=== PATIENT | female | born 1990 | race African-American/Black ===

== ENCOUNTER 2016-07-14 23:59 | Emergency (ER) | payer BC ==
[~2016-07-14] VITALS: Ht 172.7 cm; Wt 60.0 kg
[~2016-07-14 23:59] MED LIST: AUGM250S2 PO; LOMO PO; PRED5TAB; TACT325T; ZOFR4TAB3 SL
[2016-07-15 00:04] VITALS: BP 119/62; PULSE 62; RESP 16; TEMP 98; O2SAT 100
[2016-07-15 00:27] LABS: AUTOMATED NEUTROPHIL # 2.1 TH/MM3 (1.8-7.7); BASOPHIL % 0.9 % (0.0-2.0); EOSINOPHIL # 0.1 TH/MM3 (0-0.4); EOSINOPHIL % 1.1 % (0.0-4.0); HEMATOCRIT 36.7 % (35.0-46.0); HEMO FLAGS DIFF FINAL; LYMPH % 47.7 % (9.0-44.0); LYMPHOCYTE # 2.3 TH/MM3 (1.0-4.8); MEAN CELL VOLUME 84.5 FL (80.0-100.0); MEAN CORPUSCULAR HEMOGLOBIN 29.7 PG (27.0-34.0); MEAN CORPUSCULAR HGB CONC 35.1 % (32.0-36.0); MONO % 5.9 % (0.0-8.0); NEUT % 44.4 % (16.0-70.0); PLATELET COUNT 253 TH/MM3 (150-450); RED BLOOD COUNT 4.35 MIL/MM3 (4.00-5.30); RED CELL DISTRIBUTION WIDTH 13.7 % (11.6-17.2); WHITE BLOOD COUNT 4.8 TH/MM3 (4.0-11.0)
[2016-07-15 00:46] LABS: ALT (GPT) 13 U/L (10-53); ANION GAP 8 MEQ/L (5-15); AST (GOT) 10 U/L (15-37); BICARBONATE 26.7 MEQ/L (21.0-32.0); BLOOD UREA NITROGEN 6 MG/DL (7-18); CHLORIDE 110 MEQ/L (98-107); GLOMERULAR FILTRATION RATE 99 ML/MIN (>89); POTASSIUM 3.6 MEQ/L (3.5-5.1); SODIUM (NA) 145 MEQ/L (136-145)
--- NOTE | 2016-07-15 00:47 | RADRPT ---
EXAM DATE/TIME: 07/15/2016 00:32 [place] COMPARISON: No previous studies available for comparison. INDICATIONS : Right chest pain. MEDICAL HISTORY : None. SURGICAL HISTORY : None. ENCOUNTER: Initial ACUITY: 1 day PAIN SCORE: 10/10 LOCATION: Right chest FINDINGS: A single view of the chest demonstrates the lungs to be symmetrically aerated without evidence of mas s, infiltrate or effusion. The cardiomediastinal contours are unremarkable. Osseous structures are intact. CONCLUSION: No acute cardiopulmonary process. Brian Vora MD on July 15, 2016 at 0:45 Board Certified Radiologist. This report was verified electronically.
[2016-07-15 00:50] LABS: ALKALINE PHOSPHATASE 86 U/L (45-117); TOTAL BILIRUBIN ADULT 0.2 MG/DL (0.2-1.0)
[2016-07-15 01:02] LABS: CREATINE KINASE 69 U/L (26-192)
[2016-07-15 01:25] LABS: BACTERIA, URINE MOD /hpf; BLOOD, URINE NEG (NEG); GLUCOSE,URINE NEG (NEG); HYALINE CAST, URINE 1 /lpf (RARE); KETONE, URINE NEG (NEG); MUCUS URINE FEW /lpf (OCC); NITRITE,URINE NEG (NEG); SQUAMOUS EPITHELIAL CELL URINE 4 /hpf (0-5); URINE COLOR YELLOW (YELLW/STRAW)
[2016-07-15 01:28] LABS: COMMENT (UR) CATH-CULTURE IND; CULTURE IF INDICATED CATH CULTURE IND
[2016-07-15] MEDS ORDERED: MACR100C2 PO (01:41)
[2016-07-15] MEDS ORDERED: MOBI15TA PO (01:41)
--- NOTE | 2016-07-15 01:47 | PD ---
HPI Chief Complaint: Chest Pain Time Seen by Provider: 01:42 Travel History International Travel<30 days: No Contact w/Intl Traveler<30days: No Traveled to known affect area: No History of Present Illness HPI 26-year-old black female presents to emergency Department with complaints of left-sided chest wall pain. She states that she's been having pains on and off now for nearly 2 years. She states that sometimes the pains come and go. She associates laying on her left and right side as an exacerbating factor. She states the pains are sharp and stabbing. Moderate in intensity. They resolve within seconds to minutes. She does state that certain activities bring the pain on his well. She denies any recent illness. No fever or chills. No chest congestion, cough. No shortness of breath or wheezing. No calf pain or swelling. She denies any connective tissue disorders or clotting problems. She does smoke. She denies control. No family history of clotting disorders according to the patient. PFSH Past Medical History Medical History: Denies Significant Hx Immunizations Current: Yes ?: Not LMP: 3-5-17 : 2 : 2 Past Surgical History Surgical History: No Previous Surgery Social History Alcohol Use: No Tobacco Use: Yes (5-6 CIG. A DAY) Substance Use: Yes (OCCAS. MARJUANA) Allergies-Medications (Allergen,Severity, Reaction): Coded Allergies: No Known Allergies (Unverified , 06/22/15) Reported Meds & Prescriptions Reported Meds & Active Scripts Active Lomotil (Diphenoxylate HCl/Atropine) 1 Tab Tab 1 Tab PO Q6H PRN Zofran ODT (Ondansetron HCl) 4 Mg Tab 4 Mg SL Q6H PRN FOR NAUSEA/VOMITING Reported Tactinal 325 mg (Acetaminophen) 325 Mg Tab Augmentin 250 Mg/5 Ml Susp (Amoxicillin/Clavulanate Potassium) 250 Mg/5 Ml Susp 250 Mg PO BID Prednisone 5 Mg Tab Review of Systems Except as stated in HPI: all other systems reviewed are Neg Physical Exam Narrative GENERAL: Well-developed, well-nourished in no apparent distress. Nontoxic appearing. HEAD: Normocephalic, atraumatic. EYES: Pupils equal round and reactive. Extraocular motions intact. No scleral icterus. No injection or drainage. ENT: Nose clear. Throat without erythema, tonsillar hypertrophy or exudate. Uvula midline. Airway patent. NECK: Trachea midline. Supple, nontender, moves head freely. No central bony tenderness or spasm. CARDIOVASCULAR: Regular rate and rhythm without murmurs, gallops, or rubs. CHEST: Mild discomfort to palpation of left chest wall without deformity or crepitance. No retractions or use of accessory muscles. RESPIRATORY: Clear to auscultation. Breath sounds equal bilaterally. No wheezes , rales, or rhonchi. GASTROINTESTINAL: Abdomen soft, non-tender, nondistended. No hepato-splenomegaly , or palpable masses. No guarding. EXTREMITIES: No clubbing, cyanosis, or edema. No joint tenderness. Supple. No Homans sign. BACK: Nontender without deformity. No flank tenderness. NEUROLOGICAL: Awake, alert and oriented x 3 .Cranial nerves grossly intact. Motor and sensory grossly within normal limits. Normal speech. Data Data Last Documented VS Vital Signs Date Time Temp Pulse Resp B/P Pulse Ox O2 Delivery O2 Flow Rate FiO2 07/15/16 00:04 98.0 62 16 119/62 100 Orders Electrocardiogram (07/15/16:15) Complete Blood Count With Diff (07/15/16:) Ckmb (Isoenzyme) Profile (07/15/16:) Troponin I (07/15/16:) Chest, Single Ap (07/15/16:15) Iv Access Insert/Monitor (07/15/16:15) Ecg Monitoring (07/15/16:) Oxygen Administration (07/15/16:) Oximetry (07/15/16:) Urinalysis - C+S If Indicated (07/15/16:15) Comprehensive Metabolic Panel (07/15/16:) Urine Culture (07/15/16:) Labs Laboratory Tests Test 07/15/16 07/15/16 00:10 00:15 White Blood Count 4.8 TH/MM3 Red Blood Count 4.35 MIL/MM3 Hemoglobin 12.9 GM/DL Hematocrit 36.7 % Mean Corpuscular Volume 84.5 FL Mean Corpuscular Hemoglobin 29.7 PG Mean Corpuscular Hemoglobin 35.1 % Concent Red Cell Distribution Width 13.7 % Platelet Count 253 TH/MM3 Mean Platelet Volume 8.8 FL Neutrophils (%) (Auto) 44.4 % Lymphocytes (%) (Auto) 47.7 % Monocytes (%) (Auto) 5.9 % Eosinophils (%) (Auto) 1.1 % Basophils (%) (Auto) 0.9 % Neutrophils # (Auto) 2.1 TH/MM3 Lymphocytes # (Auto) 2.3 TH/MM3 Monocytes # (Auto) 0.3 TH/MM3 Eosinophils # (Auto) 0.1 TH/MM3 Basophils # (Auto) 0.0 TH/MM3 CBC Comment DIFF FINAL Differential Comment Sodium Level 145 MEQ/L Potassium Level 3.6 MEQ/L Chloride Level 110 MEQ/L Carbon Dioxide Level 26.7 MEQ/L Anion Gap 8 MEQ/L Blood Urea Nitrogen 6 MG/DL Creatinine 0.85 MG/DL Estimat Glomerular Filtration 99 ML/MIN Rate Random Glucose 81 MG/DL Calcium Level 8.5 MG/DL Total Bilirubin 0.2 MG/DL Aspartate Amino Transf 10 U/L (AST/SGOT) Alanine Aminotransferase 13 U/L (ALT/SGPT) Alkaline Phosphatase 86 U/L Total Creatine Kinase 69 U/L Troponin I LESS THAN 0.02 NG/ML Total Protein 7.0 GM/DL Albumin 3.6 GM/DL Urine Color YELLOW Urine Turbidity HAZY Urine pH 6.0 Urine Specific [place] 1.016 Urine Protein NEG mg/dL Urine Glucose (UA) NEG mg/dL Urine Ketones NEG mg/dL Urine Occult Blood NEG Urine Nitrite NEG Urine Bilirubin NEG Urine Urobilinogen LESS THAN 2.0 MG/DL Urine Leukocyte Esterase MOD Urine RBC 2 /hpf Urine WBC 12 /hpf Urine Squamous Epithelial 4 /hpf Cells Urine Amorphous Sediment RARE Urine Bacteria MOD /hpf Urine Hyaline Casts 1 /lpf Urine Mucus FEW /lpf Urine Trichomonas RARE Microscopic Urinalysis Comment CATH-CULTURE IND MDM Medical Decision Making Medical Screen Exam Complete: Yes Emergency Medical Condition: Yes Medical Record Reviewed: Yes Interpretation(s) EKG shows normal sinus bradycardia, no ST elevation or depression, and no arrhythmias. No significant T-wave inversions. Laboratory Tests Test 07/15/16 07/15/16 00:10 00:15 White Blood Count 4.8 TH/MM3 Red Blood Count 4.35 MIL/MM3 Hemoglobin 12.9 GM/DL Hematocrit 36.7 % Mean Corpuscular Volume 84.5 FL Mean Corpuscular Hemoglobin 29.7 PG Mean Corpuscular Hemoglobin 35.1 % Concent Red Cell Distribution Width 13.7 % Platelet Count 253 TH/MM3 Mean Platelet Volume 8.8 FL Neutrophils (%) (Auto) 44.4 % Lymphocytes (%) (Auto) 47.7 % Monocytes (%) (Auto) 5.9 % Eosinophils (%) (Auto) 1.1 % Basophils (%) (Auto) 0.9 % Neutrophils # (Auto) 2.1 TH/MM3 Lymphocytes # (Auto) 2.3 TH/MM3 Monocytes # (Auto) 0.3 TH/MM3 Eosinophils # (Auto) 0.1 TH/MM3 Basophils # (Auto) 0.0 TH/MM3 CBC Comment DIFF FINAL Differential Comment Sodium Level 145 MEQ/L Potassium Level 3.6 MEQ/L Chloride Level 110 MEQ/L Carbon Dioxide Level 26.7 MEQ/L Anion Gap 8 MEQ/L Blood Urea Nitrogen 6 MG/DL Creatinine 0.85 MG/DL Estimat Glomerular Filtration 99 ML/MIN Rate Random Glucose 81 MG/DL Calcium Level 8.5 MG/DL Total Bilirubin 0.2 MG/DL Aspartate Amino Transf 10 U/L (AST/SGOT) Alanine Aminotransferase 13 U/L (ALT/SGPT) Alkaline Phosphatase 86 U/L Total Creatine Kinase 69 U/L Troponin I LESS THAN 0.02 NG/ML Total Protein 7.0 GM/DL Albumin 3.6 GM/DL Urine Color YELLOW Urine Turbidity HAZY Urine pH 6.0 Urine Specific [place] 1.016 Urine Protein NEG mg/dL Urine Glucose (UA) NEG mg/dL Urine Ketones NEG mg/dL Urine Occult Blood NEG Urine Nitrite NEG Urine Bilirubin NEG Urine Urobilinogen LESS THAN 2.0 MG/DL Urine Leukocyte Esterase MOD Urine RBC 2 /hpf Urine WBC 12 /hpf Urine Squamous Epithelial 4 /hpf Cells Urine Amorphous Sediment RARE Urine Bacteria MOD /hpf Urine Hyaline Casts 1 /lpf Urine Mucus FEW /lpf Urine Trichomonas RARE Microscopic Urinalysis Comment CATH-CULTURE IND Last 24 hours Impressions Chest X-Ray 07/15/16 0015 Signed Impressions: Service Date/Time: Friday, July 15, 2016 00:32 - CONCLUSION: No acute cardiopulmonary process. Brian Vora MD Differential Diagnosis Differential diagnosis: Pneumothorax, pleurisy, costochondritis, PE, pericarditis Narrative Course The patient's evaluation today is unremarkable. EKG and laboratory tests are unremarkable. Chest is clear. Patient's symptoms sound of a myofascial chest wall pain. The patient is advised to take meloxicam and Macrobid for a urinary tract infection. Diagnosis Primary Impression: Chest wall pain Additional Impression: UTI (urinary tract infection) Qualified Code: N30.00 - Acute cystitis without hematuria Patient Instructions: General Instructions Additional Instructions: Rest. Increase fluids. Meloxicam and Macrobid Follow-up with the clinic at school this week. Follow-up with a primary care doctor in 1 week. Return to the ER for any emergencies Med/Other Pt SpecificInfo: Prescription(s) given Scripts Meloxicam (Mobic)15 Mg Tab15 Mg PO DAILY #30 TAB Prov:Kimberly Thompson MD 07/15/16 Nitrofurantoin Monohydrate Macrocrystals (Macrobid)100 Mg Ems621 Mg PO BID #14 CAP Prov:Kimberly Thompson MD 07/15/16 Disposition: 01 DISCHARGE HOME Condition: Stable Alvaro Kaplan Jul 15, 2016 01:47
--- NOTE | 2016-07-15 18:32 | EKG ---
Date Performed: 07/15/2016 Time Performed: 01:37:37 PTAGE: 26 years EKG: SINUS BRADYCARDIA WITH SINUS ARRHYTHMIA BORDERLINE ECG NO PREVIOUS TRACING DOCTOR: Marcial Hartmann Interpretating Date/Time 07/15/2016 18:32:01
== END 2016-07-15 02:06 | disposition home or self-care (01) ==
LOC: NEPB 23:59
DX: R07.9 Chest pain, unspecified (principal); N39.0 Urinary tract infection, site not specified
CPT/HCPCS: 71010; 80053; 81001; 82550; 84484; 85025; 87086; 93005